=== PATIENT | male | born 1965 | race Caucasian/White ===

== ENCOUNTER 2022-05-25 17:21 | Emergency (ER) | payer SELFPAY ==
[2022-05-25 17:43] VITALS: BP 142/88; PULSE 68; RESP 16; TEMP 36.9; O2SAT 97
[2022-05-25] MEDS: lidocaine-prilocaine cream 5 gm 1 APPLIC TOPICAL (19:10)
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
== END 2022-05-25 19:48 | disposition home or self-care (01) ==
PROVIDERS: Emergency Provider Nurse Practitioner Family
DX: S01.351A Open bite of right ear, initial encounter (principal); Y04.1XXA Assault by human bite, initial encounter; Y92.230 Patient room in hospital as the place of occurrence of the external cause
CPT/HCPCS: 99283